=== PATIENT | male | born 1940 | race Caucasian/White ===

== ENCOUNTER 2020-10-14 18:00 | Outpatient (CLI) | payer MEDICARE | END 2020-10-14 18:01 | disposition home or self-care (01) | LOC: SLEEPLAB 18:00 | PROVIDERS: ATTEND Family Medicine | DX: G47.33 Obstructive sleep apnea (adult) (pediatric) (principal); R06.83 Snoring; G47.00 Insomnia, unspecified | CPT/HCPCS: 95806 ==

== ENCOUNTER 2020-12-11 19:00 | Outpatient (CLI) | payer MEDICARE | END 2020-12-11 19:01 | disposition home or self-care (01) | LOC: SLEEPLAB 19:00 | PROVIDERS: ATTEND Family Medicine | DX: G47.33 Obstructive sleep apnea (adult) (pediatric) (principal); R06.83 Snoring; G47.10 Hypersomnia, unspecified; I49.9 Cardiac arrhythmia, unspecified; E66.9 Obesity, unspecified; Z68.26 Body mass index [BMI] 26.0-26.9, adult | CPT/HCPCS: 95811 ==

== ENCOUNTER 2023-11-28 11:21 | Outpatient (CLI) | payer MEDICARE | END 2023-11-28 11:22 | disposition home or self-care (01) | LOC: ULT 11:21 | PROVIDERS: ATTEND Family Medicine | DX: R41.3 Other amnesia (principal); I08.3 Combined rheumatic disorders of mitral, aortic and tricuspid valves | CPT/HCPCS: 70450; 93306 ==